=== PATIENT | male | born 1950 | race Caucasian/White ===

== ENCOUNTER 2017-03-09 20:00 | Emergency (ER) | payer OTHER, MEDICARE ==
[2017-03-09] MEDS ORDERED: IPRATROPIUM/ALBUTEROL SULFATE 3 ML AMPUL.NEB NEB ONE ×2 (20:05→20:22)
[2017-03-09] MEDS ORDERED: BUDESONIDE 0.5MG/2ML AMPUL.NEB NEB ONE (20:05)
--- NOTE | 2017-03-09 20:18 | ED Physician Documentation ---
General Adult - HISTORIAN Historian: patient, spouse - HPI Stated Complaint: wheezing, sob Chief Complaint: General Adult Onset: hours Timing: still present Severity: moderate Further Comments: yes (Pt is a 66 yo male with hx asthma and environmental allergies who has had wheezing and sob today. No chest pain. Pt thinks his wheezing is due to his environmental allergies. No fever.) - ROS CONST: no problems EYES/ENT: none CVS/RESP: other (wheezing) GI/: none MS/SKIN/LYMPH: none - PAST HX Past History: asthma, other (Depression, HTN) Surgeries/Procedures: other (appendectomy, ortho surg) Allergies/Adverse Reactions: Allergies Allergy/AdvReac Type Severity Reaction Status Date / Time lisinopril AdvReac Mild "Makes him Verified 03/09/17 20:09 feel weird", tolerates Benazepril metoprolol AdvReac Worsens Verified 03/09/17 20:09 GERD, increases RAD Home Medications: Ambulatory Orders Medication Instructions Recorded Omeprazole 20 mg PO DAILY u2 10/23/13 Ventolin Hfa 2 inhalation IH Q 4-6 HOURS #1 ih 10/23/13 Hydrocodone/Acetaminophen 1 each PO Q4 PRN u2 12/16/13 [Hydrocodon-Acetaminophen 5-325] Losartan Potassium [Cozaar] 100 mg PO QDAY 03/09/17 Montelukast Sodium [Singulair] 10 mg PO HS 03/09/17 - SOCIAL HX Smoking History: non-smoker - FAMILY HX Family History: No - VITAL SIGNS Vital Signs: Vital Signs Temp Pulse Resp BP Pulse Ox 145/70 11/09/14 18:59 - REVIEWED ASSESSMENTS Nursing Assessment Reviewed: Yes Vitals Reviewed: Yes Progress - Progress Progress: Duoneb HFN Pulmicort HFN Solu-medrol 125 mg IM improved Rx Prednisone 50 mg. Take one tablet by mouth once daily for 4 days. Continue home asthma medication and allergy medications. - EKG/XRAY/CT XRAY: chest (Impression: Mild dependent scarring/atelectasis. No acute pulmonary process.) ED Results Lab/Radiology - Orders Orders: ED Orders Category Date Time Status Budesonide [Pulmicort] Med 03/09/17 20:05 Discontinued 0.5 mg NEB .STK-MED ONE Ipratropium/Albuterol Sulfate [Duoneb] Med 03/09/17 20:05 Discontinued 3 ml NEB .STK-MED ONE General Adult Physical Exam - PHYSICAL EXAM GENERAL APPEARANCE: mild distress EENT: pharynx normal NECK: normal inspection, supple RESPIRATORY: no resp distress, wheezes (mild) CVS: reg rate & rhythm, heart sounds normal BACK: normal inspection SKIN: warm/dry, normal color EXTREMITIES: non-tender, normal range of motion, no evidence of injury NEURO: oriented X3, motor nml, sensation nml Discharge Clincal Impression: wheezing, environmental allergies Referrals: Erum Ortiz MD [Primary Care Provider] - Home Medications: Ambulatory Orders Omeprazole 20 mg PO DAILY u2 10/23/13 Ventolin Hfa 2 inhalation IH Q 4-6 HOURS #1 ih 10/23/13 Hydrocodone/Acetaminophen [Hydrocodon-Acetaminophen 5-325] 1 each PO Q4 PRN u2 12/16/13 Losartan Potassium [Cozaar] 100 mg PO QDAY 03/09/17 Montelukast Sodium [Singulair] 10 mg PO HS 03/09/17 Condition: Good Disposition: 01 HOME, SELF-CARE Decision to Admit: NO Decision Time: 21:24
[2017-03-09] MEDS ORDERED: methylPREDNISolone SOD SUCC 125 MG/2 ML VIAL IVP STA (20:22)
[2017-03-09] MEDS ORDERED: methylPREDNISolone SOD SUCC 125 MG/2 ML VIAL IM ONE (20:47)
[2017-03-09 20:57] LABS: BASOPHILS % 0.6 (0.0-1.5); EOSINOPHILS % 2.4 % (0.0-6.8); MEAN CORPUSCULAR HEMOGLOBIN 33.2 pg (28.0-34.0); MEAN CORPUSCULAR VOLUME 94.5 fl (80.0-100.0); MONOCYTES % 5.4 % (0.0-11.0); NEUTROPHILS # 6.4 # k/uL (1.4-7.7)
[2017-03-09] MEDS ORDERED: BUDESONIDE 0.5MG/2ML AMPUL.NEB NEB SCH (21:00)
--- NOTE | 2017-03-09 21:02 | Diagnostic Imaging Report ---
MIKAL GAMBLE [facility] [address] [facility] [address] [address] Report Submission Date: Mar 09, 2017 8:51:40 PM CDT Patient Study Name: ADAM SPANGLER Date: Mar 09, 2017 8:28:48 PM CDT Modality Type: CR Gender: M Description: CHEST : 50 Institution: [facility] Physician: MIKAL GAMBLE Examination: PA and lateral chest. History: Evaluate lung remy. Findings: PA lateral chest demonstrate a normal cardiac and mediastinal silhouette. No focal infiltrate. No effusion. No blunting of the costophrenic margins. Minimal dependent atelectasis /scarring. Osseous structures are appropriate for age. Impression: Mild dependent scarring/atelectasis. No acute pulmonary process. Electronically signed on Mar 09, 2017 8:51:40 PM CDT by: Jayson BAH
[2017-03-09 21:12] LABS: eGFR (African) > 60; eGFR (Non-African) > 60
[2017-03-09 21:55] VITALS: BP 154/76
== END 2017-03-09 21:40 | disposition home or self-care (01) ==
LOC: ED 20:00
DX: T78.49XA Other allergy, initial encounter (principal); X58.XXXA Exposure to other specified factors, initial encounter; Y93.9 Activity, unspecified; Y99.9 Unspecified external cause status; R06.2 Wheezing
CPT/HCPCS: 71020; 80053; 85025; J2930; J7626; 99283

== ENCOUNTER 2017-10-01 17:27 | Emergency (ER) | payer OTHER, MEDICARE ==
[2017-10-01] MEDS ORDERED: KETOROLAC TROMETHAMINE 60 MG/2 ML VIAL IM ONE (18:38)
--- NOTE | 2017-10-01 18:50 | ED Physician Documentation ---
Fall - HISTORIAN Historian: patient - HPI Stated Complaint: Fall- Left Arm Injury Chief Complaint: Fall Onset: today Where: home Context: slipped (on ice) r: moderate Associated Symptoms:: no loss of consciousness Location of Pain/Injury: L shoulder Injury to Right Extremity: none Injury to Left Extremity: shoulder, wrist Further Comments: yes (66 year old male patient presents with complaint of left shoulder and left wrist pain after falling on the ice. 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.) - ROS CONST: no problems MS/SKIN/LYMPH: denies: neck pain, back pain EYES/ENT: none CVS/RESP: none GI/: denies: nausea, vomiting - PAST HX Past History: other (Parkinson's, HTN, GERD, hypothyroidism) Allergies/Adverse Reactions: Allergies Allergy/AdvReac Type Severity Reaction Status Date / Time lisinopril AdvReac Mild "Makes him Verified 10/01/17 17:38 feel weird", tolerates Benazepril metoprolol AdvReac Worsens Verified 10/01/17 17:38 GERD, increases RAD Home Medications: Ambulatory Orders Medication Instructions Recorded Omeprazole 20 mg PO DAILY u2 10/23/13 Ventolin Hfa 2 inhalation IH Q 4-6 HOURS #1 ih 10/23/13 Celecoxib [Celecoxib] 200 mg PO DAILY 10/01/17 Cetirizine HCl [Zyrtec] 10 mg PO DAILY 10/01/17 Hydrochlorothiazide 25 mg PO DAILY 10/01/17 [Hydrochlorothiazide] Levothyroxine Sodium [Synthroid] 100 mcg PO 0700 10/01/17 Losartan Potassium [Cozaar] 100 mg PO DAILY 10/01/17 - SOCIAL HX Smoking History: non-smoker - FAMILY HX Family History: denies: none - VITAL SIGNS Vital Signs: Vital Signs Temp Pulse Resp BP Pulse Ox 97.4 F L 68 18 154/68 95 10/01/17 17:30 10/01/17 17:30 10/01/17 17:30 10/01/17 17:30 10/01/17 17:30 - REVIEWED ASSESSMENTS Nursing Assessment Reviewed: Yes Vitals Reviewed: Yes ED Results Lab/Radiology - Radiology Radiology Impressions: Left shoulder, 3 views History: Fall, injury, pain Findings: The osseous, joints and soft tissue structures are normal. Impression: Normal. Electronically signed on Oct 01, 2017 6:24:27 PM COMPOSING ROOM SUPERVISOR by: Jorge Aguiar Left wrist, 3 views History: Pain, fall, injury Findings: No fracture, dislocation or abnormal bone production or destruction is identified. Impression: No acute osseous abnormality. Electronically signed on Oct 01, 2017 6:23:58 PM COMPOSING ROOM SUPERVISOR by: Jorge Aguiar - Orders Orders: ED Orders Category Date Time Status Sling to Affected Extremity 1T Care 10/01/17 18:44 Ordered SHOULDER 2 VIEWS OR MORE [RAD] Stat Exams 10/01/17 Taken WRIST 3 VIEWS OR MORE [RAD] Stat Exams 10/01/17 Taken Ketorolac Tromethamine [Toradol] Med 10/01/17 18:38 Discontinued 60 mg IM NOW ONE Fall Physical Exam - Physical Exam General Appearance: mild distress Head: non-tender, no swelling, no obvious injury Eye: CATARINO ENT: nml external inspection, no dental injury, no oral injury, airway nml Resp/CVS: chest non-tender, no ecchymosis, breath sounds nml, no resp. distress , heart sounds nml Abdomen: soft, no organomegaly, normal bowel sounds, no abdominal bruit, no distension Neuro: oriented x3, CN's nml as tested, sensation nml, motor nml, mood/affect nml, netezza architect nml, other (gross motor tremors noted) Skin: color nml, no rash, nml palp., dry Back: normal inspection, no CVA tenderness Extremities: atraumatic, pelvis stable, hips non-tender, no pedal edema, nml ROM , nml color/temp, other (left shoulder pain with attempted ROM - pain with extension; left wrist - tender to palpation; ROM WNL) - Russell Coma Score Eyes Open: Spontaneous Speech: Oriented Motor: Obeys Commands Discharge Clincal Impression: Fall Qualifiers: Encounter type: initial encounter Qualified Code(s): W19.XXXA - Unspecified fall, initial encounter Shoulder contusion Qualifiers: Encounter type: initial encounter Laterality: left Qualified Code(s): S40.012A - Contusion of left shoulder, initial encounter Referrals: Erum Ortiz MD [Primary Care Provider] - 2 Days Additional Instructions: Rest Ice to left shoulder Tylenol every 4 hours as needed for discomfort. Wear your sling as needed for comfort Follow up with PCP if pain continues more than 4-5 days; you may need further testing. Condition: Stable Disposition: 01 HOME, SELF-CARE Decision to Admit: NO Decision Time: 18:52
[2017-10-01 19:01] VITALS: BP 140/68
--- NOTE | 2017-10-02 06:52 | Diagnostic Imaging Report ---
CECILIA BLISS (EMMANUEL) - ER [facility] [address] [facility] [address] [address] Report Submission Date: Oct 01, 2017 6:24:27 PM ENDODONTICS DENTIST Patient Study Name: ADAM SPANGLER Date: Oct 01, 2017 5:53:31 PM ENDODONTICS DENTIST Modality Type: CR Gender: M Description: SHOULDER : 50 Institution: [facility] Physician: CECILIA BLISS) - ER Left shoulder, 3 views History: Fall, injury, pain Findings: The osseous, joints and soft tissue structures are normal. Impression: Normal. Electronically signed on Oct 01, 2017 6:24:27 PM ENDODONTICS DENTIST by: Jorge BAH
--- NOTE | 2017-10-02 06:53 | Diagnostic Imaging Report ---
CECILIA BLISS (EMMANUEL) - ER [facility] [address] [facility] 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 Impression: No acute osseous abnormality. Electronically signed on Oct 01, 2017 6:23:58 PM CENTRIFUGAL MACHINE TENDER by: Jorge BAH
== END 2017-10-01 18:58 | disposition home or self-care (01) ==
LOC: ED 17:27
DX: S40.012A Contusion of left shoulder, initial encounter (principal); W00.0XXA Fall on same level due to ice and snow, initial encounter; Y93.9 Activity, unspecified; Y92.9 Unspecified place or not applicable; Y99.9 Unspecified external cause status
CPT/HCPCS: 73030; 73110; J1885; 96372; 99283

== ENCOUNTER 2017-10-08 18:55 | Emergency (ER) | payer OTHER, MEDICARE ==
--- NOTE | 2017-10-08 20:04 | ED Physician Documentation ---
General Adult - HPI Stated Complaint: Right Hand Swelling Chief Complaint: General Adult Onset: days ago (7) Timing: still present Severity: moderate Further Comments: yes (Pt is a 66 yo male who fell a week ago an injured his L hand. Pt has continued to have L had swelling and pain over his metacarpels. Pt called pcp who told him he might need an u/s to r/o DVT.) - ROS CONST: no problems EYES/ENT: none CVS/RESP: none GI/: none MS/SKIN/LYMPH: other (L hand pain and swelling) - PAST HX Past History: other (GERD, Asthma, HTN, Hypothyroid) Allergies/Adverse Reactions: Allergies Allergy/AdvReac Type Severity Reaction Status Date / Time lisinopril AdvReac Mild "Makes him Verified 10/08/17 19:08 feel weird", tolerates Benazepril metoprolol AdvReac Worsens Verified 10/08/17 19:08 GERD, increases RAD Home Medications: Ambulatory Orders Medication Instructions Recorded Omeprazole 20 mg PO DAILY u2 10/23/13 Ventolin Hfa 2 inhalation IH Q 4-6 HOURS #1 ih 10/23/13 Celecoxib [Celecoxib] 200 mg PO DAILY 10/01/17 Cetirizine HCl [Zyrtec] 10 mg PO DAILY 10/01/17 Hydrochlorothiazide 25 mg PO DAILY 10/01/17 [Hydrochlorothiazide] Levothyroxine Sodium [Synthroid] 100 mcg PO 0700 10/01/17 Losartan Potassium [Cozaar] 100 mg PO DAILY 10/01/17 - SOCIAL HX Smoking History: non-smoker - FAMILY HX Family History: No - VITAL SIGNS Vital Signs: Vital Signs Temp Pulse Resp BP Pulse Ox 98 F 92 H 18 136/77 99 10/08/17 18:55 10/08/17 18:55 10/08/17 18:55 10/08/17 18:55 10/08/17 18:55 - REVIEWED ASSESSMENTS Nursing Assessment Reviewed: Yes Vitals Reviewed: Yes Progress - Progress Progress: X-ray L hand: Findings: A benign-appearing exostosis emanates from the radial aspect of the 3rd proximal phalangeal shaft. Marked left hand soft tissue swelling is present. There is no evidence of dislocation. Phalangeal fractures cannot be excluded as the fingers are superimposed on the lateral view. Impression: Diffuse soft tissue swelling. Nondiagnostic exam due to nonstandard positioning. [No pain over the prox phalanges on clinical exam] Sling Toradol 30 mg IM D dimer moderately elevated return at 8:30 am tomorrow 10-09-17 for u/s of L upper extremity. ED Results Lab/Radiology - Orders Orders: ED Orders Category Date Time Status HAND 3 VIEWS OR MORE [RAD] Stat Exams 10/08/17 Taken D DIMER Stat Lab 10/08/17 19:50 Received General Adult Physical Exam - PHYSICAL EXAM GENERAL APPEARANCE: mild distress NECK: normal inspection, supple RESPIRATORY: no resp distress, chest non-tender, breath sounds normal CVS: reg rate & rhythm, heart sounds normal BACK: normal inspection SKIN: warm/dry, other (L hand swelling) EXTREMITIES: other (L hand swelling with tenderness over the metatarsals.) NEURO: oriented X3, motor nml, sensation nml Discharge Clincal Impression: L hand pain/swelling Referrals: Erum Ortiz MD [Primary Care Provider] - Condition: Stable Disposition: 01 HOME, SELF-CARE Decision to Admit: NO Decision Time: 22:27
[2017-10-08] MEDS ORDERED: KETOROLAC TROMETHAMINE 30 MG/1ML VIAL IM ONE (20:55)
[2017-10-08] MEDS ORDERED: KETOROLAC TROMETHAMINE 30 MG/1ML VIAL ONE (20:55)
[2017-10-08 21:01] VITALS: BP 130/68
--- NOTE | 2017-10-09 06:50 | Diagnostic Imaging Report ---
MIKAL GAMBLE [facility] [address] [facility] [address] [address] Report Submission Date: Oct 08, 2017 7:56:28 PM HAND MEXICAN FOOD MAKER Patient Study Name: ADAM SPANGLER Date: Oct 08, 2017 7:37:58 PM HAND M[employer]ICAN FOOD MAKER Modality Type: DX Gender: M Description: UPPER EXTREMITY : 50 Institution: [facility] Physician: MIKAL GAMBLE Left hand 3 views History: Pain and swelling after fall Findings: A benign-appearing exostosis emanates from the radial aspect of the 3rd proximal phalangeal shaft. Marked left hand soft tissue swelling is present. There is no evidence of dislocation. Phalangeal fractures cannot be excluded as the fingers are superimposed on the lateral view. Impression: Diffuse soft tissue swelling. Nondiagnostic exam due to nonstandard positioning. Electronically signed on Oct 08, 2017 7:56:28 PM HAND MEXICAN FOOD MAKER by: Rodrigo BAH
== END 2017-10-08 21:00 | disposition home or self-care (01) ==
LOC: ED 18:55
DX: M79.642 Pain in left hand (principal); M25.442 Effusion, left hand
CPT/HCPCS: 73130; 85379; J1885; 96372; 99283

== ENCOUNTER 2017-10-09 07:46 | Outpatient (CLI) | payer OTHER, MEDICARE ==
[2017-10-08 21:01] VITALS: BP 130/68
--- NOTE | 2017-10-09 10:23 | Diagnostic Imaging Report ---
MARGA PALMER [facility] [address] [facility] [address] [address] Report Submission Date: Oct 09, 2017 9:47:38 AM COAGULANT DIPPER Patient Study Name: ADAM SPANGLER Date: Oct 09, 2017 8:32:30 AM COAGULANT DIPPER Modality Type: US Gender: M Description: US EXTREMITY VEINS UNI : 50 Institution: [facility] Physician: MARGA PALMER Venous Doppler ultrasound History: LEFT HAND SWELLING X 1 WEEK AFTER FALL INJURY Flow is demonstrated in the left internal jugular, left subclavian veins. The left axillary vein, left cephalic vein, left brachial vein, left basilica vein, left radial vein, left ulnar vein are compressible and demonstrate flow. Impression: No obvious evidence of dvt in the demonstrated segments of the left upper extremity veins. Electronically signed on Oct 09, 2017 9:47:38 AM COAGULANT DIPPER by: Norah BAH
== END 2017-10-09 07:47 ==
LOC: RAD 07:46
PROVIDERS: ATTEND Emergency Medicine
DX: R22.32 Localized swelling, mass and lump, left upper limb (principal)
CPT/HCPCS: 93971